=== PATIENT | male | born 1980 | race African-American/Black ===

== ENCOUNTER 2025-01-21 10:14 | Emergency (ER) | payer OTHER ==
[~2025-01-21] VITALS: Ht 167.6 cm; Wt 74.0 kg
[2025-01-21 10:23] VITALS: BP 110/76; PULSE 67; RESP 18; TEMP 98.1; O2SAT 99
== END 2025-01-21 11:50 | disposition left against medical advice (07) ==
LOC: EMS 10:20
DX: T17.228A Food in pharynx causing other injury, initial encounter (principal); Z53.21 Procedure and treatment not carried out due to patient leaving prior to being seen by health care provider; W44.8XXA Other foreign body entering into or through a natural orifice, initial encounter; Y93.89 Activity, other specified; Y92.89 Other specified places as the place of occurrence of the external cause; Y99.8 Other external cause status